=== PATIENT | male | born 1975 | race Asian ===

== ENCOUNTER 2021-10-09 10:03 | Outpatient (CLI) | payer OTHER, SELFPAY ==
[2021-10-09 13:39] LABS: Chloride* 101 mmol/L (96-114); Potassium* 4.1 mmol/L (3.6-5.1); Sodium* 139 mmol/L (135-149)
[2021-10-09 13:42] LABS: Blood Urea Nitrogen* 15 mg/dL (5-24); Carbon Dioxide* 30 mmol/L (20-32); Creatinine* 0.7 mg/dL (0.5-1.5); Estimated Glomerular Filt Rate 114 ml/min; Glucose* 135 mg/dL (60-115)
[2021-10-09 13:43] LABS: Calcium* 9.4 mg/dL (8.4-10.6)
== END 2021-10-09 10:04 | disposition home or self-care (01) ==
LOC: LKVREF 10:04
PROVIDERS: PCP Emergency Medicine; Visit Provider Emergency Medicine
DX: Z01.818 Encounter for other preprocedural examination (principal)
CPT/HCPCS: 80048

== ENCOUNTER 2021-12-12 12:44 | Outpatient (CLI) | payer OTHER, SELFPAY ==
--- NOTE | 2021-12-12 14:15 | W.ANESCHARGE ---
Anesthesia Charges Start Date/Time Anesthesia Start Date: 12/12/21 Anesthesia Start Time: 13:36 Stop Date/Time Anesthesia Stop Date: 12/12/21 Anesthesia Stop Time: 14:09 Summary Emergency: No
--- NOTE | 2021-12-12 15:09 | W.ANESCHARGE ---
Anesthesia Charges Start Date/Time Anesthesia Start Date: 12/12/21 Anesthesia Start Time: 13:36 Stop Date/Time Anesthesia Stop Date: 12/12/21 Anesthesia Stop Time: 14:09 Summary Emergency: No
== END 2021-12-12 12:45 | disposition home or self-care (01) ==
LOC: OP CLINIC 12:45
PROVIDERS: PCP Emergency Medicine; Visit Provider Surgery
DX: Z12.11 Encounter for screening for malignant neoplasm of colon (principal); K52.9 Noninfective gastroenteritis and colitis, unspecified; K63.5 Polyp of colon
CPT/HCPCS: 00811; 45380; 45385; 88305; J2704

== ENCOUNTER 2023-09-03 10:19 | Outpatient (CLI) | payer OTHER, SELFPAY | END 2023-09-03 10:20 | disposition home or self-care (01) | PROVIDERS: PCP Emergency Medicine; Visit Provider Emergency Medicine | DX: E11.9 Type 2 diabetes mellitus without complications (principal); Z79.84 Long term (current) use of oral hypoglycemic drugs | CPT/HCPCS: 80048; 82043; 82570 ==

== ENCOUNTER 2024-10-14 08:29 | Outpatient (CLI) | payer OTHER, SELFPAY | END 2024-10-14 08:30 | disposition home or self-care (01) | PROVIDERS: PCP Emergency Medicine; Visit Provider Family Medicine | DX: E78.5 Hyperlipidemia, unspecified (principal); E11.9 Type 2 diabetes mellitus without complications; Z12.5 Encounter for screening for malignant neoplasm of prostate | CPT/HCPCS: 80048; 80061; G0103 ==